=== PATIENT | male | born 1950 | race Caucasian/White ===

== ENCOUNTER 2017-03-09 05:30 | Day surgery (SDC) | payer OTHER ==
--- NOTE | ~2017-03-09 | EGD ---
EGD REPORT [facility] [address] [place] [address] NAME: JESE OTTO : [birth year] STATUS : REG [facility] [place]#: [id number] AGE: 66 ADM/REG DATE : 03/09/17 MR#: [id number] REPORT SERV DATE: 03/09/17 DICTATED BY: MARIE RAMIREZ DATE: 03/09/17 REPORT STATUS : Draft TRANSCRIBED BY: [employer] DATE: 03/09/17 [facility] Patient Name: Jese Otto Date of : 1950 Attending MD: MARIE RAMIREZ MD Procedure Date No Time: 03/09/2017 Procedure: Colonoscopy Indications: Surveillance: History of adenomas, unable to locate last colonoscopy note (<3yr) Referring MD: MURRAY PARK JR. Medicines: See the Anesthesia note for documentation of the administered medications Complications: No immediate complications. Procedure: Pre-Anesthesia Assessment: - ASA Grade Assessment: III - A patient with severe systemic disease. After I obtained informed consent, the scope was passed under direct vision. Throughout the procedure, the patient's blood pressure, pulse, and oxygen saturations were monitored continuously. The PCF [id number] was introduced through the anus and advanced to the terminal ileum, with identification of the appendiceal orifice and IC valve. The colonoscopy was performed without difficulty. The patient tolerated the procedure well. The quality of the bowel preparation was adequate. Min fecal debris. Findings: The perianal and digital rectal examinations were normal. Internal hemorrhoids were found during retroflexion and were small. Impression: - Internal hemorrhoids. Recommendation: - Patient has a contact number available for emergencies. The signs and symptoms of potential delayed complications were discussed with the patient. Return to normal activities tomorrow. Written discharge instructions were provided to the patient. - Regular diet. - Continue present medications. - Repeat colonoscopy in 3 years for surveillance. - FOR YOUR BIOPSY RESULTS: Please go to [email or web address] and register to receive your results via the portal. Your biopsy results will be posted there in about 7 to 10 days. IF you do not see EGD REPORT [address] [address] NAME: JESE OTTO : [birth year] [place] [facility] [place] [id number] AGE: 66 ADM/REG DATE : 03/09/17 MR#: [id number] REPORT SERV DATE: 03/09/17 DICTATED BY: MARIE RAMIREZ DATE: 03/09/17 REPORT STATUS : Draft TRANSCRIBED BY: [employer] DATE: 03/09/17 result in 10 days, call office. - Return to my office in 1 year. Procedure Code(s): --- Professional --- 23501, Colonoscopy, flexible, proximal to splenic flexure; diagnostic, with or without collection of specimen(s) by brushing or washing, with or without colon decompression (separate procedure) Diagnosis Code(s): --- Professional --- K64.8, Other hemorrhoids Z86.010, Personal history of colonic polyps CPT copyright 2013 [employer]. All rights reserved. The codes documented in this report are preliminary and upon mechanical integrity specialist review may be revised to meet current compliance requirements. Marie Ramirez MD MARIE RAMIREZ MD 03/09/2017 7:29 AM This report has been signed electronically. Number of Addenda: 0 Note Initiated On: 03/09/2017 7:00 AM Scope Withdrawal Time 0 hours 12 minutes 23 seconds [id number] [place] [id number]
[~2017-03-09 05:30] MED LIST: ASA5GR PO; AUGMENTIN PO; CRESTOR5 MG PO; CYANO1000T PO; GLUCOPHAGE1000 MG PO; IRON PO; NORCO1 TA2 PO; PLAVIX PO; SEROQUEL50 MG PO; VICTOZA18 MG/3 ML SC; VITAMIN D31000 UNIT PO; WELLSR150 PO
== END 2017-03-09 23:59 | disposition home or self-care (01) ==
LOC: DMU 05:30
PROVIDERS: Internal Medicine Gastroenterology
PROC: 0DJD8ZZ Inspection of Lower Intestinal Tract, Via Natural or Artificial Opening Endoscopic (ICD-10-PCS; principal; 2017-03-09 07:00)
DX: Z12.11 Encounter for screening for malignant neoplasm of colon (principal); K64.8 Other hemorrhoids; I25.10 Atherosclerotic heart disease of native coronary artery without angina pectoris; E78.5 Hyperlipidemia, unspecified; E11.9 Type 2 diabetes mellitus without complications; Z86.010 Personal history of colon polyps; Z95.5 Presence of coronary angioplasty implant and graft; G47.33 Obstructive sleep apnea (adult) (pediatric); Z90.49 Acquired absence of other specified parts of digestive tract; Z98.890 Other specified postprocedural states
CPT/HCPCS: 82962